=== PATIENT | female | born 1990 | race African-American/Black ===

== ENCOUNTER 2022-04-01 12:13 | Emergency (ER) | payer BC, SELFPAY ==
[2022-04-01] MEDS ORDERED: Ketorolac Tromethamine 30 MG/ML VIAL ONE (13:42)
== END 2022-04-01 16:14 | disposition home or self-care (01) ==
LOC: CSHERS 12:13
DX: S83.91XA Sprain of unspecified site of right knee, initial encounter (principal); S39.013A Strain of muscle, fascia and tendon of pelvis, initial encounter; W19.XXXA Unspecified fall, initial encounter
CPT/HCPCS: 72170; 96372; J1885

== ENCOUNTER 2022-04-16 08:43 | Emergency (ER) | payer SELFPAY | END 2022-04-16 09:55 | disposition home or self-care (01) | LOC: CSHERS 08:43 | DX: M25.551 Pain in right hip (principal) | CPT/HCPCS: 99283 ==

== ENCOUNTER 2022-11-02 06:50 | Emergency (ER) | payer BC, SELFPAY ==
[2022-11-02] MEDS ORDERED: Dexamethasone 10 MG/ML VIAL ONE (07:23)
== END 2022-11-02 07:30 | disposition home or self-care (01) ==
LOC: CSHERS 06:50
DX: B34.9 Viral infection, unspecified (principal); H60.93 Unspecified otitis externa, bilateral; E11.9 Type 2 diabetes mellitus without complications; Z20.822 Contact with and (suspected) exposure to COVID-19
CPT/HCPCS: 87804; 96372; 99283; J1100; U0003; U0005

== ENCOUNTER 2022-11-03 17:40 | Emergency (ER) | payer SELFPAY | END 2022-11-03 18:12 | disposition home or self-care (01) | LOC: CSHERS 17:40 | DX: U07.1 COVID-19 (principal); E11.9 Type 2 diabetes mellitus without complications | CPT/HCPCS: 99284 ==

== ENCOUNTER 2023-05-02 19:17 | Emergency (ER) | payer SELFPAY ==
[2023-05-02] MEDS ORDERED: Milk Of Magnesia 30 ML UDCUP ONE (20:01)
[2023-05-02] MEDS ORDERED: Ondansetron ODT 4 MG TAB ONE (20:01)
[2023-05-02] MEDS ORDERED: Metoclopramide HCl 10 MG TAB ONE (21:19)
[2023-05-02] MEDS ORDERED: Dicyclomine 20 MG/2 ML VIAL ONE (21:19)
[2023-05-02] MEDS ORDERED: Sucralfate 1 GM/10 ML UDCUP ONE (21:19)
== END 2023-05-02 22:20 | disposition home or self-care (01) ==
LOC: CSHERS 19:17
DX: K21.9 Gastro-esophageal reflux disease without esophagitis (principal); E11.9 Type 2 diabetes mellitus without complications; Z79.84 Long term (current) use of oral hypoglycemic drugs
CPT/HCPCS: 96372; 99283; Q0162

== ENCOUNTER 2023-05-06 17:31 | Emergency (ER) | payer SELFPAY ==
[2023-05-06] MEDS ORDERED: Mag-Al Plus 1200 MG/1200 MG/120 MG/30 ML UDCUP ONE ×2 (18:15→18:24)
[2023-05-06 18:38] LABS: #Monocytes 0.3 10x3/uL (0.0-1.1); #Neutrophils 1.6 10x3/uL (1.5-8.4); %Basophils 0.9 % (0.0-2.0); %Eosinophils 0.6 % (0.0-6.0); %Lymphocytes 41.6 % (18.0-47.0); %Monocytes 9.2 % (0.0-10.0); %Neutrophils 47.4 % (40.0-75.0); Hemoglobin 14.3 g/dL (12.0-15.5); Mean Corpuscular HGB CONC 32.8 g/dL (32.0-36.0); Mean Corpuscular Hemoglobin 30.2 pg (27.0-33.0); Mean Corpuscular Volume 92.2 fl (81.6-98.3); Mean Platelet Volume 11.8 fl (7.4-10.4); Platelet Count 226 10x3/uL (150-450); RBC Distribution Width 13.7 % (11.5-14.5); Red Blood Cell (RBC) Count 4.73 10x6/uL (3.90-5.03); White Blood Cell (WBC) Count 3.3 10x3/uL (3.5-10.5)
[2023-05-06 18:55] LABS: ALT (SGPT) 26 U/L (8-55); AST (SGOT) 18 U/L (5-34); Alkaline Phosphatase 70 U/L (40-110); Anion Gap 13 mmol/L (10-20); BUN (Urea Nitrogen) 8 mg/dL (7.0-18.7); Bilirubin, Total 0.4 mg/dL (0.2-1.2); Calc. Creatinine Clearance 0 mL/min (70-130); Calcium 9.4 mg/dL (7.8-10.44); Carbon Dioxide 29 mmol/L (22-29); Chloride 102 mmol/L (98-107); Estimated GFR 95; Globulin 3.7 g/dL (2.4-3.5); Glucose 93 mg/dL (70-105); Lipase 42 U/L (8-78); Potassium 2.8 mmol/L (3.5-5.1); Protein, Total 7.7 g/dL (6.0-8.3); Sodium 141 mmol/L (136-145)
[2023-05-06] MEDS ORDERED: Potassium Chloride 20 MEQ TAB ONE (19:15)
== END 2023-05-06 20:49 | disposition home or self-care (01) ==
LOC: CSHERS 17:31
DX: R10.9 Unspecified abdominal pain (principal); E11.9 Type 2 diabetes mellitus without complications
CPT/HCPCS: 36415; 74177; 80053; 83690; 83735; 85025

== ENCOUNTER 2023-10-04 13:10 | Emergency (ER) | payer SELFPAY ==
[2023-10-04] MEDS ORDERED: Dexamethasone 10 MG/ML VIAL ONE (15:34)
== END 2023-10-04 15:57 | disposition home or self-care (01) ==
LOC: CSHERS 13:10
DX: J30.2 Other seasonal allergic rhinitis (principal); E11.9 Type 2 diabetes mellitus without complications
CPT/HCPCS: 96372; 99283; J1100

== ENCOUNTER 2023-11-06 08:11 | Emergency (ER) | payer SELFPAY ==
[2023-11-06] MEDS ORDERED: Ketorolac Tromethamine 30 MG (1 mL) VIAL ONE (09:08)
[2023-11-06] MEDS ORDERED: Dexamethasone 10 MG/ML VIAL ONE (09:08)
== END 2023-11-06 09:51 | disposition home or self-care (01) ==
LOC: CSHERS 08:11
DX: J06.9 Acute upper respiratory infection, unspecified (principal); H92.03 Otalgia, bilateral; E11.9 Type 2 diabetes mellitus without complications
CPT/HCPCS: 96372; 99283; J1100; J1885

== ENCOUNTER 2023-11-23 14:27 | Emergency (ER) | payer SELFPAY | END 2023-11-23 16:55 | disposition home or self-care (01) | LOC: CSHERS 14:27 | DX: S73.102A Unspecified sprain of left hip, initial encounter (principal); S73.101A Unspecified sprain of right hip, initial encounter; S93.602A Unspecified sprain of left foot, initial encounter; E11.9 Type 2 diabetes mellitus without complications; W01.0XXA Fall on same level from slipping, tripping and stumbling without subsequent striking against object, initial encounter | CPT/HCPCS: 73522 ==

== ENCOUNTER 2024-04-17 07:18 | Emergency (ER) | payer SELFPAY ==
[2024-04-17] MEDS ORDERED: Dexamethasone 10 MG/ML VIAL ONE (08:04)
== END 2024-04-17 08:15 | disposition home or self-care (01) ==
LOC: CSHERS 07:18
DX: L30.9 Dermatitis, unspecified (principal); E11.9 Type 2 diabetes mellitus without complications
CPT/HCPCS: 36416; 96372; 99283; J1100

== ENCOUNTER 2024-09-20 10:57 | Emergency (ER) | payer SELFPAY ==
[2024-09-20] MEDS ORDERED: Ketorolac Tromethamine 30 MG (1 mL) VIAL ONE (12:53)
== END 2024-09-20 13:12 | disposition home or self-care (01) ==
LOC: CSHERS 10:57
DX: M54.9 Dorsalgia, unspecified (principal); E11.9 Type 2 diabetes mellitus without complications; J45.909 Unspecified asthma, uncomplicated; Z55.0 Illiteracy and low-level literacy; Z79.51 Long term (current) use of inhaled steroids
CPT/HCPCS: 71045; 93005; 96372; J1885

== ENCOUNTER 2025-09-07 18:45 | Emergency (ER) | payer SELFPAY ==
[2025-09-07] MEDS ORDERED: Ketorolac Tromethamine 30 MG (1 mL) VIAL ONE (20:44)
== END 2025-09-07 20:57 | disposition home or self-care (01) ==
LOC: CSHERS 18:45
DX: R05.1 Acute cough (principal); E11.9 Type 2 diabetes mellitus without complications; I10 Essential (primary) hypertension; Z79.899 Other long term (current) drug therapy
CPT/HCPCS: 87428; 96372; 99283; J1885

== ENCOUNTER 2025-09-10 20:40 | Emergency (ER) | payer SELFPAY ==
[2025-09-10] MEDS ORDERED: Benzonatate 100 MG CAP ONE ×2 (23:27→23:31)
[2025-09-11] MEDS ORDERED: Acetaminophen 500 MG TAB ONE (05:41)
== END 2025-09-10 23:33 | disposition home or self-care (01) ==
LOC: CSHERS 20:40
DX: J45.901 Unspecified asthma with (acute) exacerbation (principal); E11.9 Type 2 diabetes mellitus without complications; I10 Essential (primary) hypertension
CPT/HCPCS: 71045; 94640